=== PATIENT | female | born 1960 | race African-American/Black ===

== ENCOUNTER 2017-10-23 14:36 | Emergency (ER) | payer SELFPAY ==
[~2017-10-23] VITALS: Ht 170.2 cm; Wt 90.0 kg
[~2017-10-23 14:36] MED LIST: ASPI325T PO; CLON1 PO; GLUCTAB PO; HYDR10TA16 PO; METO25 PO; METO50TA OR; SERT50 PO; SIMV20TA OR
[2017-10-23 14:40] VITALS: BP 197/102; PULSE 112; RESP 20; TEMP 99.3; O2SAT 97
[2017-10-23] MEDS ORDERED: guaiFENesin/CODEINE SYRUP 200 MG/20 MG/10 ML CUP PO ONE (17:30)
[2017-10-23] MEDS ORDERED: ACETAMINOPHEN 325 MG TAB PO ONE (17:30)
--- NOTE | 2017-10-23 17:34 | PD ---
HPI . Cold symptoms Chief Complaint: Cold / Flu Symptoms Time Seen by Provider: 17:05 Travel History International Travel<30 days: No Contact w/Intl Traveler<30days: No Traveled to known affect area: No History of Present Illness HPI Patient presents with a 2 day history of cough, fever and diffuse myalgias. Symptoms have been constant for the last 2 days. She has taken Benadryl and cough drops without relief. She notes no modifying factors. Context is that many of her coworkers have been ill recently with colds. PFSH Past Medical History Autoimmune Disease: Yes (LUPUS) Depression: Yes Cardiovascular Problems: Yes (HTN) High Cholesterol: Yes Diabetes: Yes Diminished Hearing: No Hypertension: Yes Musculoskeletal: Yes ("DEGENERATIVE DISC IN BACK", RESTLESS LEG SYNDROME) Respiratory: Yes ("PULMONARY BLOOD CLOT IN 2003") ?: Not Tubal Ligation: Yes (1982) Past Surgical History Hysterectomy: Yes Other Surgery: Yes ("R.HAND TENDON REPLACEMENT AND CARPAL TUNNEL") Social History Alcohol Use: No Tobacco Use: Yes ("1/2 PACK OF CIGARETTES A DAY") Substance Use: No Allergies-Medications (Allergen,Severity, Reaction): Coded Allergies: penicillin G (Unverified Allergy, Severe, "SWELL UP", 02/08/17) nitroglycerin (Unverified Adverse Reaction, Severe, VOMITS, 02/08/17) Reported Meds & Prescriptions Reported Meds & Active Scripts Active Reported Ativan (Lorazepam) 0.5 Mg Tab 0.5 Mg PO HS PRN Simvastatin 20 Mg Tab 20 Mg PO DAILY Zoloft (Sertraline HCl) 50 Mg Tab 50 Mg PO DAILY Metoprolol Tartrate 25 Mg Tab 25 Mg PO BID Metformin (Metformin HCl) 500 Mg Tab 500 Mg PO BIDPC Morphabond ER 12 HR (Morphine Sulfate) 30 Mg Tab 30 Mg PO Q12H Hydrocodone-Acetaminophen 10-325 mg Tab 1 Tab PO Q8HR PRN Review of Systems Except as stated in HPI: all other systems reviewed are Neg General / Constitutional: Positive: Fever, Chills HENT: Positive: Sore Throat Respiratory: Positive: Cough Musculoskeletal: Positive: Myalgias Physical Exam Narrative GENERAL: Awake and alert and in no acute distress. SKIN: warm/dry. HEAD: Normocephalic. Atraumatic. EYES: Pupils equal and round. No scleral icterus. No injection or drainage. ENT: No nasal bleeding or discharge. Mucous membranes pink and moist. Oropharynx has no erythema, tonsillar enlargement or exudate. NECK: Trachea midline. Full range of motion without pain.. No cervical lymphadenopathy. CARDIOVASCULAR: Regular rate and rhythm. Heart sounds are normal. RESPIRATORY: No accessory muscle use. Clear to auscultation. Breath sounds equal bilaterally. MUSCULOSKELETAL: No obvious deformities. NEUROLOGICAL: Awake and alert. No obvious cranial nerve deficits. Motor grossly within normal limits. Normal speech. PSYCHIATRIC: Appropriate mood and affect; insight and judgment normal. Data Data Last Documented VS Vital Signs Date Time Temp Pulse Resp B/P (MAP) Pulse Ox O2 Delivery O2 Flow Rate FiO2 10/23/17 18:35 18 10/23/17 17:35 98 Room Air 10/23/17 14:40 99.3 112 197/102 (133) Orders Orders Complete Blood Count With Diff (10/23/17 17:19) Basic Metabolic Panel (Bmp) (10/23/17 17:19) Group A Rapid Strep Screen (10/23/17 17:19) Influenzae A/B Antigen (10/23/17 17:19) Chest, Pa & Lat (10/23/17 17:19) Acetaminophen (Tylenol) (10/23/17 17:30) Guaifen-Cod 200-20 Mg/10ml Liq (Robituss (10/23/17 17:30) Strep Culture (Group A) (10/23/17 17:30) Ed Discharge Order (10/23/17 19:12) Labs Laboratory Tests Test 10/23/17 17:30 White Blood Count 9.1 TH/MM3 Red Blood Count 4.18 MIL/MM3 Hemoglobin 12.6 GM/DL Hematocrit 38.3 % Mean Corpuscular Volume 91.5 FL Mean Corpuscular Hemoglobin 30.1 PG Mean Corpuscular Hemoglobin Concent 32.9 % Red Cell Distribution Width 14.1 % Platelet Count 394 TH/MM3 Mean Platelet Volume 7.6 FL Neutrophils (%) (Auto) 67.1 % Lymphocytes (%) (Auto) 24.5 % Monocytes (%) (Auto) 5.6 % Eosinophils (%) (Auto) 1.9 % Basophils (%) (Auto) 0.9 % Neutrophils # (Auto) 6.1 TH/MM3 Lymphocytes # (Auto) 2.2 TH/MM3 Monocytes # (Auto) 0.5 TH/MM3 Eosinophils # (Auto) 0.2 TH/MM3 Basophils # (Auto) 0.1 TH/MM3 CBC Comment DIFF FINAL Differential Comment Blood Urea Nitrogen 8 MG/DL Creatinine 0.63 MG/DL Random Glucose 92 MG/DL Calcium Level 9.5 MG/DL Sodium Level 139 MEQ/L Potassium Level 3.8 MEQ/L Chloride Level 105 MEQ/L Carbon Dioxide Level 24.1 MEQ/L Anion Gap 10 MEQ/L Estimat Glomerular Filtration Rate 117 ML/MIN MDM Medical Decision Making Medical Screen Exam Complete: Yes Emergency Medical Condition: Yes Differential Diagnosis Differential diagnosis includes but is not limited to influenza, upper respiratory infection, bronchitis, pneumonia Narrative Course This patient presents with a chief complaint of a cold. She is a little bit tachycardic. She also tells me that she has a history of hypertension, diabetes and lupus. I have ordered a strep screen, flu screen and chest x-ray. Her disposition will be dependent upon the results of these test. Last Impressions Chest X-Ray 10/23/17 [id number] Signed Impressions: Service Date/Time: Monday, October 23, 2017 17:26 - CONCLUSION: No acute disease. Pablo Mc MD The chest x-ray was independently reviewed by me. CBC Diagram 10/23/17 17:30 BMP Diagram 10/23/17 17:30 Calcium Level 9.5 Flu screen is negative. Strep screen - for group A strep Diagnosis Primary Impression: Upper respiratory infection Qualified Codes: J06.9 - Acute upper respiratory infection, unspecified Patient Instructions: General Instructions, Upper Respiratory Infection (DC) Additional Instructions: I recommend the use of a Neti Pot. You may use a nasal spray such as Afrin for up to 3 days as needed for nasal congestion. You may take an [id number]-jduczzc antihistamine such as Zyrtec, Shadia or Claritin as needed for runny secretions. You may take pseudoephedrine as needed for congestion. You will need to sign for this at the pharmacy. You may take plain Mucinex, 1200 mg twice a day as needed for thick secretions. You may take a cough syrup such as Delsym as needed for cough. Motrin as needed for fever and body aches. Throat lozenges/sprays as needed for sore throat. Warm salt water gargles for sore throat. Hot tea with lemon and honey also helps soothe a sore throat. Disposition: 01 DISCHARGE HOME Condition: Stable Kalee Short MD Oct 23, 2017 17:34
[2017-10-23] MEDS ORDERED: SIMV20TA PO (17:39)
[2017-10-23] MEDS ORDERED: METF500T PO (17:39)
[2017-10-23] MEDS ORDERED: LORA-392 PO (17:39)
[2017-10-23] MEDS ORDERED: HYDR-3583 PO (17:39)
[2017-10-23] MEDS ORDERED: METO25TA3 PO (17:39)
[2017-10-23] MEDS ORDERED: ZOLO50TA PO (17:39)
[2017-10-23] MEDS ORDERED: MORP-44 PO (17:39)
--- NOTE | 2017-10-23 17:45 | RADRPT ---
EXAM DATE/TIME: 10/23/2017 17:26 [facility] COMPARISON: No previous studies available for comparison. INDICATIONS : Left sided chest pain, cough, and shortness of breath. MEDICAL HISTORY : Pulmonary embolism. SURGICAL HISTORY : None. ENCOUNTER: Initial ACUITY: 2 days PAIN SCORE: 5/10 LOCATION: Left chest FINDINGS: PA and lateral views of the chest demonstrate the lungs to be symmetrically aerated without evidence of mass, infiltrate or effusion. The cardiomediastinal contours are unremarkable. Osseous structure s are intact. CONCLUSION: No acute disease. Pablo Mc MD on October 23, 2017 at 17:42 Board Certified Radiologist. This report was verified electronically.
[2017-10-23 18:17] LABS: AUTOMATED NEUTROPHIL # 6.1 TH/MM3 (1.8-7.7); BASOPHIL # 0.1 TH/MM3 (0-0.2); BASOPHIL % 0.9 % (0.0-2.0); EOSINOPHIL # 0.2 TH/MM3 (0-0.4); EOSINOPHIL % 1.9 % (0.0-4.0); HEMATOCRIT 38.3 % (35.0-46.0); HEMOGLOBIN 12.6 GM/DL (11.6-15.3); LYMPH % 24.5 % (9.0-44.0); LYMPHOCYTE # 2.2 TH/MM3 (1.0-4.8); MEAN CELL VOLUME 91.5 FL (80.0-100.0); MEAN CORPUSCULAR HEMOGLOBIN 30.1 PG (27.0-34.0); MEAN CORPUSCULAR HGB CONC 32.9 % (32.0-36.0); MEAN PLATELET VOLUME 7.6 FL (7.0-11.0); MONO % 5.6 % (0.0-8.0); MONOCYTE # 0.5 TH/MM3 (0-0.9); NEUT % 67.1 % (16.0-70.0); PLATELET COUNT 394 TH/MM3 (150-450); RED BLOOD COUNT 4.18 MIL/MM3 (4.00-5.30); RED CELL DISTRIBUTION WIDTH 14.1 % (11.6-17.2); WHITE BLOOD COUNT 9.1 TH/MM3 (4.0-11.0)
[2017-10-23 18:35] VITALS: RESP 18
[2017-10-23 18:48] LABS: BICARBONATE 24.1 MEQ/L (21.0-32.0); CALCIUM 9.5 MG/DL (8.5-10.1); CREATININE 0.63 MG/DL (0.50-1.00)
== END 2017-10-23 19:33 | disposition home or self-care (01) ==
LOC: NEPE 14:36
DX: J06.9 Acute upper respiratory infection, unspecified (principal); M32.9 Systemic lupus erythematosus, unspecified; F32.9 Major depressive disorder, single episode, unspecified; I10 Essential (primary) hypertension; E78.00 Pure hypercholesterolemia, unspecified; E11.9 Type 2 diabetes mellitus without complications; G25.81 Restless legs syndrome; F17.210 Nicotine dependence, cigarettes, uncomplicated
CPT/HCPCS: 71046; 80048; 85025; 87081; 87804; 87880; 99284